=== PATIENT | male | born 1985 | race Two or more races ===

== ENCOUNTER 2022-09-20 05:57 | Emergency (ER) | payer OTHER ==
[~2022-09-20] VITALS: Ht 167.6 cm; Wt 118.0 kg
[2022-09-20 07:34] VITALS: BP 137/86
[2022-09-20] MEDS ORDERED: IBUP800T27 PO (07:40)
[2022-09-20] MEDS ORDERED: IBUPROFEN 800 MG TAB PO ONE (07:45)
== END 2022-09-20 08:07 | disposition home or self-care (01) ==
LOC: ER 05:57
DX: S82.891A Other fracture of right lower leg, initial encounter for closed fracture (principal); W01.0XXA Fall on same level from slipping, tripping and stumbling without subsequent striking against object, initial encounter; Y93.01 Activity, walking, marching and hiking; Y92.830 Public park as the place of occurrence of the external cause; Y99.8 Other external cause status
CPT/HCPCS: 29515; 73610